=== PATIENT | female | born 1990 | race Caucasian/White ===

== ENCOUNTER 2018-08-21 16:52 | Emergency (ER) | payer BC ==
--- NOTE | 2018-08-21 16:22 | US ---
EXAMINATION TYPE: Transabdominal DATE OF EXAM: 12/26/17 COMPARISON: NONE CLINICAL HISTORY: O26.9 related conditions, [id number]. Hx of right ectopic with tubal removal. Cramping. No spotting. EXAM PERFORMED: Transvaginal (TV) and Transabdominal (TA) EXAM MEASUREMENTS: GESTATIONAL AGE / DATING Dates by LMP: (6 weeks/1 days) EDC: 04/15/2019 Dates by Current Scan for: No IUP seen at this time MATERNAL ANATOMY Uterus: 6.8 x 4.4 x 3.7 cm Right Ovary: 2.5 x 1.8 x 1.3 Left Ovary: 2.3 x 2.1 x 1.8 cm Post CDS / Adnexa: free fluid in CDS. In left adnexa there is a thin walled cystic appearing lesion seen adjacent to uterine MICHELLE and left ovary - 0.8 x 0.8 cm Presence of free fluid: no Presence of corpus luteal cyst: right ovarian lesion with peripheral vascular flow - 1.8 x 1.3 x 1.5 cm Presence of subchorionic bleed: no GESTATION / SURVEY MSD: No GS seen IUP: No IUP seen at this time Date of LMP: 07/09/2018, E1 Beta HcG (if available): Not available at this time No IUP seen at this time. Endometrium appears thickened. In left adnexa thin walled cystic appearing lesion seen adjacent to uterine MICHELLE and left ovary - 0.8 x 0.8 cm. Prominent cystic cervical lesion = 1.3 x 1.9 x 0.5 cm No changes suggest early intrauterine gestational sac or implantation identified. Differential diagno sis could include very early , ectopic , spontaneous . IMPRESSION: No intrauterine gestation identified at this time. Correlation with beta-hCG and follow-up is recomme nded.
[2018-08-21 18:31] VITALS: RESP 18; TEMP 98.3
[2018-08-21 19:17] LABS: Appearance,Urine Cloudy (Clear); Bilirubin,Urine Negative (Negative); Blood,Urine Negative (Negative); Color,Urine Light Yellow; Glucose,Urine (UA) Negative (Negative); Ketones,Urine Negative (Negative); Leukocyte Esterase,Urine Negative (Negative); Mucus,Urine Rare /hpf; Nitrite,Urine Negative (Negative); PH, Urine 5.5 (5.0-8.0); Protein,Urine Negative (Negative); RBC,Urine <1 /hpf (0-5); Specific Gravity,Urine 1.014 (1.001-1.035); Squamous Epithelial Cell,Urine 8 /hpf (0-4); Urobilinogen,Urine <2.0 mg/dL (<2.0); WBC,Urine 4 /hpf (0-5)
[2018-08-21 19:34] LABS: Basophils % (A) 0 %; Eosinophils # (A) 0.1 k/uL (0-0.7); Eosinophils % (A) 1 %; HCT 40.3 % (34.0-46.0); HGB 13.2 gm/dL (11.4-16.0); Lymphocytes # (A) 2.1 k/uL (1.0-4.8); Lymphocytes % (A) 22 %; MCH 29.5 pg (25.0-35.0); MCHC 32.7 g/dL (31.0-37.0); MCV 90.2 fL (80.0-100.0); Mean Platelet Volume 7.7; Monocytes # (A) 0.4 k/uL (0-1.0); Monocytes % (A) 4 %; Neutrophils # (A) 6.7 k/uL (1.3-7.7); Neutrophils % (A) 71 %; Platelet Count 328 k/uL (150-450); RBC 4.46 m/uL (3.80-5.40); RDW 12.5 % (11.5-15.5); WBC 9.4 k/uL (3.8-10.6)
[2018-08-21 19:40] LABS: ALT 23 U/L (9-52); AST 21 U/L (14-36); Albumin 4.7 g/dL (3.5-5.0); Alkaline Phosphatase 41 U/L (38-126); Amylase 38 U/L (30-110); Anion Gap 12 mmol/L; Blood Urea Nitrogen 17 mg/dL (7-17); Calcium 10.1 mg/dL (8.4-10.2); Carbon Dioxide 23 mmol/L (22-30); Chloride 106 mmol/L (98-107); Glucose 134 mg/dL (74-99); Lipase 41 U/L (23-300); Potassium 4.5 mmol/L (3.5-5.1); Sodium 141 mmol/L (137-145); Total Bilirubin 0.5 mg/dL (0.2-1.3); Total Protein 7.7 g/dL (6.3-8.2)
[2018-08-21 19:56] LABS: HCG,Quantitative Serum 615.7 mIU/mL
[2018-08-21 21:29] VITALS: BP 112/77; PULSE 82
--- NOTE | 2018-08-21 21:54 | ED ---
Abdominal Pain HPI - General Chief Complaint: Abdominal Pain Stated Complaint: issues, came from US Time Seen by Provider: 08/21/18 20:49 Source: patient Mode of arrival: ambulatory Limitations: no limitations - History of Present Illness Initial Comments: 27-year-old female patient presents to the emergency department today for evaluation after having an abnormal ultrasound outpatient today. Patient reports that she did have positive test at home and was having some lower abdominal cramping so she presented to her primary care physician today. Patient was diagnosed with a bacterial vaginal infection and also sent for ultrasound. Patient had finding of a thin walled cyst near the left adnexa. With patient's history of ectopic and positive test a or concerns was sent her over here for evaluation. Patient states that she has been having abdominal cramping for the last 2 days. States it is very mild. States that she has had an increase in vaginal discharge that she denies any vaginal bleeding. Patient denies any low back pain with this. Denies any hematuria, dysuria, urinary frequency, urinary urgency. Patient is . Patient denies any recent rash, fever, chills, shortness breath, chest pain, nausea, vomiting, diarrhea, constipation, numbness, tingling, dizziness, weakness, headache, visual changes, or any other complaints. - Related Data Home Medications Medication Instructions Recorded Confirmed No Known Home Medications 08/21/18 08/21/18 Allergies Allergy/AdvReac Type Severity Reaction Status Date / Time No Known Allergies Allergy Verified 08/21/18 19:26 Review of Systems ROS Statement: Those systems with pertinent positive or pertinent negative responses have been documented in the HPI. ROS Other: All systems not noted in ROS Statement are negative. Past Medical History Past Medical History: No Reported History History of Any Multi-Drug Resistant Organisms: None Reported Additional Past Surgical History / Comment(s): R fallopian tube removal 2010 Past Psychological History: No Psychological Hx Reported Smoking Status: Never smoker Past Alcohol Use History: Occasional Past Drug Use History: None Reported General Exam Limitations: no limitations General appearance: alert, in no apparent distress, other (This is a well- developed, well-nourished adult female patient in no acute distress. Vital signs upon presentation are temperature 98.3F, pulse 81, respirations 18, blood pressure 130/68, pulse ox 99% on room air.) Eye exam: Present: normal appearance, PERRL, EOMI. Absent: scleral icterus, conjunctival injection, periorbital swelling ENT exam: Present: normal exam, normal oropharynx, mucous membranes moist Respiratory exam: Present: normal lung sounds bilaterally. Absent: respiratory distress, wheezes, rales, rhonchi, stridor Cardiovascular Exam: Present: regular rate, normal rhythm, normal heart sounds. Absent: systolic murmur, diastolic murmur, rubs, gallop, clicks GI/Abdominal exam: Present: soft, normal bowel sounds. Absent: distended, tenderness, guarding, rebound, rigid Back exam: Present: normal inspection. Absent: CVA tenderness (R), CVA tenderness (L) Neurological exam: Present: alert, oriented X3, CN II-XII intact Psychiatric exam: Present: normal affect, normal mood Skin exam: Present: warm, dry, intact, normal color. Absent: rash Course Vital Signs 08/21/18 08/21/18 18:28 21:28 Temperature 98.3 F 98.3 F Pulse Rate 81 82 Respiratory 18 18 Rate Blood Pressure 130/68 112/77 O2 Sat by Pulse 99 100 Oximetry Medical Decision Making - Medical Decision Making 27-year-old female patient presented to the emergency department today for evaluation of lower abdominal cramping and abnormal ultrasound results. Ultrasound was reviewed and did reveal a thin walled cystic lesion to the left of the lower uterine segment near the left ovary measuring 0.8 x 0.8 cm. Patient's hCG is 615.7. Patient is not having any significant abdominal pain at this time. Findings concerning for early , ectopic , or spontaneous , with this hCg level it is too early to make a determination. I did discuss the case with Dr. regalado the [facility] nutrition teacher, she recommends repeat hCG level in 2 days and follow-up outpatient. Patient was educated regarding signs or symptoms of ectopic . She is urged to return immediately should her symptoms change or worsen at all. Return parameters discussed in detail. She verbalizes understanding and agrees with this plan - Lab Data Result diagrams: 08/21/18 19:15 08/21/18 19:15 Lab Results 08/21/18 08/21/18 08/21/18 Range/Units 19:00 19:00 19:15 WBC (3.8-10.6) k/uL RBC (3.80-5.40) m/uL Hgb (11.4-16.0) gm/dL Hct (34.0-46.0) % MCV (80.0-100.0) fL MCH (25.0-35.0) pg MCHC (31.0-37.0) g/dL RDW (11.5-15.5) % Plt Count (150-450) k/uL Neutrophils % % Lymphocytes % % Monocytes % % Eosinophils % % Basophils % % Neutrophils # (1.3-7.7) k/uL Lymphocytes # (1.0-4.8) k/uL Monocytes # (0-1.0) k/uL Eosinophils # (0-0.7) k/uL Basophils # (0-0.2) k/uL Sodium 141 (137-145) mmol/L Potassium 4.5 (3.5-5.1) mmol/L Chloride 106 (98-107) mmol/L Carbon Dioxide 23 (22-30) mmol/L Anion Gap 12 mmol/L BUN 17 (7-17) mg/dL Creatinine 0.73 (0.52-1.04) mg/dL Est GFR (CKD-EPI)AfAm >90 (>60 ml/min/1.73 sqM) Est GFR (CKD-EPI)NonAf >90 (>60 ml/min/1.73 sqM) Glucose 134 H (74-99) mg/dL Calcium 10.1 (8.4-10.2) mg/dL Total Bilirubin 0.5 (0.2-1.3) mg/dL AST 21 (14-36) U/L ALT 23 (9-52) U/L Alkaline Phosphatase 41 (38-126) U/L Total Protein 7.7 (6.3-8.2) g/dL Albumin 4.7 (3.5-5.0) g/dL Amylase 38 (30-110) U/L Lipase 41 (23-300) U/L HCG, Quant 615.7 mIU/mL Urine Color Light Yellow Urine Appearance Cloudy H (Clear) Urine pH 5.5 (5.0-8.0) Ur Specific [place] 1.014 (1.001-1.035) Urine Protein Negative (Negative) Urine Glucose (UA) Negative (Negative) Urine Ketones Negative (Negative) Urine Blood Negative (Negative) Urine Nitrite Negative (Negative) Urine Bilirubin Negative (Negative) Urine Urobilinogen <2.0 (<2.0) mg/dL Ur Leukocyte Esterase Negative (Negative) Urine RBC <1 (0-5) /hpf Urine WBC 4 (0-5) /hpf Ur Squamous Epith Cells 8 H (0-4) /hpf Urine Mucus Rare H (None) /hpf Urine HCG, Qual Detected (Not Detectd) 08/21/18 Range/Units 19:15 WBC 9.4 (3.8-10.6) k/uL RBC 4.46 (3.80-5.40) m/uL Hgb 13.2 (11.4-16.0) gm/dL Hct 40.3 (34.0-46.0) % MCV 90.2 (80.0-100.0) fL MCH 29.5 (25.0-35.0) pg MCHC 32.7 (31.0-37.0) g/dL RDW 12.5 (11.5-15.5) % Plt Count 328 (150-450) k/uL Neutrophils % 71 % Lymphocytes % 22 % Monocytes % 4 % Eosinophils % 1 % Basophils % 0 % Neutrophils # 6.7 (1.3-7.7) k/uL Lymphocytes # 2.1 (1.0-4.8) k/uL Monocytes # 0.4 (0-1.0) k/uL Eosinophils # 0.1 (0-0.7) k/uL Basophils # 0.0 (0-0.2) k/uL Sodium (137-145) mmol/L Potassium (3.5-5.1) mmol/L Chloride (98-107) mmol/L Carbon Dioxide (22-30) mmol/L Anion Gap mmol/L BUN (7-17) mg/dL Creatinine (0.52-1.04) mg/dL Est GFR (CKD-EPI)AfAm (>60 ml/min/1.73 sqM) Est GFR (CKD-EPI)NonAf (>60 ml/min/1.73 sqM) Glucose (74-99) mg/dL Calcium (8.4-10.2) mg/dL Total Bilirubin (0.2-1.3) mg/dL AST (14-36) U/L ALT (9-52) U/L Alkaline Phosphatase (38-126) U/L Total Protein (6.3-8.2) g/dL Albumin (3.5-5.0) g/dL Amylase (30-110) U/L Lipase (23-300) U/L HCG, Quant mIU/mL Urine Color Urine Appearance (Clear) Urine pH (5.0-8.0) Ur Specific [place] (1.001-1.035) Urine Protein (Negative) Urine Glucose (UA) (Negative) Urine Ketones (Negative) Urine Blood (Negative) Urine Nitrite (Negative) Urine Bilirubin (Negative) Urine Urobilinogen (<2.0) mg/dL Ur Leukocyte Esterase (Negative) Urine RBC (0-5) /hpf Urine WBC (0-5) /hpf Ur Squamous Epith Cells (0-4) /hpf Urine Mucus (None) /hpf Urine HCG, Qual (Not Detectd) - Radiology Data Radiology results: report reviewed Transvaginal ultrasound was obtained. Report was reviewed in its entirety. Impression by Dr. Rivera shows no injury uterine gestation identified at this time. The endometrium appears thickened. In the left adnexa there is a thin walled cystic appearing lesion seen adjacent to the lower uterine segment and left ovary measuring 0.8 x 0.8 cm. There is a prominent cystic cervical lesion measuring 1.3 x 1.9 x 0.5 cm. There are no changes to suggest early intrauterine gestational sac or implantation. Differential diagnosis could include very early , ectopic , or spontaneous . Disposition Clinical Impression: Abdominal pain during Disposition: HOME SELF-CARE Condition: Good Instructions: Ectopic (DC), Abdominal Pain in (ED) Additional Instructions: Increase fluids. Have quantitative hCG level redrawn in 2 days. Follow-up with [facility] for recheck as soon as possible. Return immediately for any new, worsening, or concerning symptoms. Is patient prescribed a controlled substance at d/c from ED?: No Referrals: Piotr Salazar Jr, DO [Primary Care Provider] - 1-2 days Dionne Tellez DO [Doctor of Osteopathic Medicine] - 1-2 days Time of Disposition: 21:55
== END 2018-08-21 22:00 | disposition home or self-care (01) ==
LOC: EC 16:52
DX: O99.89 Other specified diseases and conditions complicating pregnancy, childbirth and the puerperium (principal); R10.30 Lower abdominal pain, unspecified; N83.8 Other noninflammatory disorders of ovary, fallopian tube and broad ligament; R93.89 Abnormal findings on diagnostic imaging of other specified body structures; N89.8 Other specified noninflammatory disorders of vagina; Z90.79 Acquired absence of other genital organ(s); Z3A.00 Weeks of gestation of pregnancy not specified
CPT/HCPCS: 36415; 76801; 76817; 80053; 81001; 81025; 82150; 83690; 84702; 85025; 99284

== ENCOUNTER 2019-04-23 09:05 | Inpatient (IN) | payer BC ==
[2019-04-23] MEDS ORDERED: OXYTOCIN 10 UNIT/ML 1 ML VIAL IM PRN (10:57)
[2019-04-23] MEDS ORDERED: TERBUTALINE 1 MG/ML VIAL SQ PRN (10:57)
[2019-04-23] MEDS ORDERED: METHYLERGONOVINE 0.2 MG/ML 1 ML AMP IM PRN (10:57)
[2019-04-23] MEDS ORDERED: CARBOPROST TROMETHAMINE 250 MCG/ML 1 ML AMP IM PRN (10:57)
[2019-04-23] MEDS ORDERED: LIDOCAINE 0.5% (PF) 5 MG/ML (50 ML SDV) SQ PRN (10:57)
[2019-04-23] MEDS ORDERED: OXYTOCIN 30 UNITS/500 ML NS 30 UNIT in SALINE 1 500ML.BAG IV SCH (11:00)
[2019-04-23 11:21] VITALS: RESP 16; BMI 34.2
[2019-04-23] MEDS: LACTATED RINGERS 1,000 ML IV SCH ×2 (11:22→12:21)
[2019-04-23 11:32] LABS: Basophils % (A) 0 %; Eosinophils # (A) 0.1 k/uL (0-0.7); Eosinophils % (A) 1 %; HCT 38.1 % (34.0-46.0); HGB 12.2 gm/dL (11.4-16.0); Lymphocytes # (A) 1.2 k/uL (1.0-4.8); Lymphocytes % (A) 11 %; MCH 28.7 pg (25.0-35.0); MCHC 32.2 g/dL (31.0-37.0); MCV 89.4 fL (80.0-100.0); Mean Platelet Volume 7.8; Monocytes # (A) 0.5 k/uL (0-1.0); Monocytes % (A) 4 %; Neutrophils # (A) 8.7 k/uL (1.3-7.7); Neutrophils % (A) 82 %; Platelet Count 223 k/uL (150-450); RBC 4.26 m/uL (3.80-5.40); RDW 14.8 % (11.5-15.5); WBC 10.6 k/uL (3.8-10.6)
[2019-04-23] MEDS ORDERED: BUTORPHANOL 1 MG/ML 1 ML VIAL IV PRN (11:38)
--- NOTE | 2019-04-23 11:44 | P.HPOB ---
History of Present Illness H&P Date: 04/23/19 Chief Complaint: 39-3/7 weeks, labor The patient is a 28-year-old 2 para 0010 admitted at 39-3/7 weeks as established by seven-week ultrasound. She is admitted for labor as she has made documented cervical change in triage. Her has been uncomplicated and group B strep status is negative. On labor and delivery, all signs are reassuring. Obstetrical history: 2 para 0010 with 1 early miscarriage. Current statistics are listed in history of present illness. EDC of 04/27/2019 was established by a 7 week ultrasound. Laboratory workup done traits of blood type of O+ with a negative antibody screen. Rubella status is immune. The remainder of the laboratory workup was within normal limits. Early Glucola was within normal limits. One hour second trimester Glucola is normal and group B strep status is negative. Gynecologic history: Unremarkable with no history of any infections to include STDs. Review of Systems Review of systems is confined to history of present illness. Past Medical History Past Medical History: No Reported History History of Any Multi-Drug Resistant Organisms: None Reported Additional Past Surgical History / Comment(s): R fallopian tube removal 2010 Past Anesthesia/Blood Transfusion Reactions: No Reported Reaction Past Psychological History: No Psychological Hx Reported Smoking Status: Never smoker Past Alcohol Use History: None Reported Past Drug Use History: None Reported - Past Family History Mother Family Medical History: No Reported History Medications and Allergies Home Medications Medication Instructions Recorded Confirmed Type No Known Home Medications 08/21/18 04/23/19 History Allergies Allergy/AdvReac Type Severity Reaction Status Date / Time No Known Allergies Allergy Verified 04/23/19 09:21 Exam Vital Signs Temp Pulse Resp BP 04/23/19 11:10 96.8 F L 99 16 136/85 Intake and Output 04/22/19 04/23/19 04/23/19 22:59 06:59 14:59 Other: Weight 82.1 kg In general, this is a well-developed, well-nourished white female in no acute distress though she is uncomfortable in early labor. Her heart has a regular rhythm and rate without murmur. Her lungs are clear to auscultation bilaterally in all murphy. Her abdomen is gravid, nondistended, has normal active bowel sounds, is soft, nontender, and without any palpable masses aside from the uterine fundus. Her extremities are without any cyanosis, clubbing, or significant edema and are nontender to palpation bilaterally. Digital cervical examination on straights her to be 5 cm dilated, 80-90% effaced, the vertex in presentation at -2 station. Artificial rupture of membranes is carried out demonstrating clear fluid. Results Result Diagrams: 04/23/19 11:15 Abnormal Lab Results - Last 24 Hours (Table) 04/23/19 Range/Units 11:15 Neutrophils # 8.7 H (1.3-7.7) k/uL Assessment and Plan (1) Active labor at term Current Visit: Yes Status: Acute Code(s): [id number] - SNOMED Code(s): 42952515 Plan: The patient is admitted for close maternal and surveillance and expectant management will be practiced. She is a good candidate for either IV or epidural analgesia and has requested an epidural be placed. She will likely have Pitocin augmentation started following placement of the epidural as her contraction pattern remains somewhat erratic.
[2019-04-23] MEDS ORDERED: ROPIVACAINE 100 MG, fentaNYL (PF) 200 MCG in SODIUM CHLORIDE 0.9% 76 ML EPIDURAL ONE (12:23)
[2019-04-23] MEDS ORDERED: HYDROcodone/APAP 7.5-325MG 1 EACH TAB PO PRN (18:59)
[2019-04-23] MEDS ORDERED: ACETAMINOPHEN TAB 325 MG TAB PO PRN (18:59)
[2019-04-23] MEDS ORDERED: diphenhydrAMINE 25 MG CAP PO PRN (18:59)
[2019-04-23] MEDS ORDERED: SIMETHICONE 80 MG CHEWABLE PO PRN (18:59)
[2019-04-23] MEDS ORDERED: BENZOCAINE/MENTHOL SPRAY 1 GM/SPRAY AEROSOL TOPICAL PRN (18:59)
[2019-04-23] MEDS ORDERED: LANOLIN CREAM 5 GM TUBE TOPICAL PRN (18:59)
[2019-04-23] MEDS ORDERED: diphenhydrAMINE 50 MG/ML 1 ML VIAL IVP PRN ×2 (18:59)
[2019-04-23] MEDS ORDERED: HYDROCORTISONE 2.5% RECTAL CREAM 30 GM TUBE RECTAL PRN (18:59)
[2019-04-23] MEDS ORDERED: WITCH HAZEL 1 EACH MED..PAD TOPICAL PRN (18:59)
[2019-04-23] MEDS ORDERED: ZOLPIDEM 5 MG TAB PO PRN (18:59)
[2019-04-23] MEDS ORDERED: diphenhydrAMINE 50 MG CAP PO PRN (18:59)
[2019-04-23] MEDS ORDERED: HYDROcodone/APAP 5-325MG 1 EACH TAB PO PRN (18:59)
[2019-04-23] MEDS ORDERED: OXYTOCIN 20 UNITS/1000 ML NS 1,000 ML IV SCH (19:00)
--- NOTE | 2019-04-23 19:02 | P.PROBDLV ---
Vaginal Delivery Note - . Vaginal Delivery Note: The patient is a 28-year-old 2 para 0010 admitted at 39-3/7 weeks by good dating parameters. She is admitted in early active labor with all signs reassuring. She underwent artificial rupture of membranes demonstrating clear fluid. She had an epidural catheter placed for analgesia at the onset of the active phase of labor. She did require Pitocin augmentation and then progressed fairly quickly to complete and 0 station. She pushed over the course of appr oximately 50 minutes to a normal spontaneous vaginal delivery of a viable 6 lbs. 11 oz. baby girl with Apgars of 9 at 1 minute and 10 at 5 minutes delivered in the right occiput anterior position. The placenta was delivered spontaneously, intact, and grossly normal with a grossly normal three-vessel cord inserted approximately 3-4 cm from the margin of the placental disc. There was a small second-degree midline perineal laceration which was repaired in standard fashion using 3-0 chromic catgut without difficulty. Estimated blood loss for the case was approximately 300 mL. There were no Medications. All sponge, instrument, and needle counts were correct. Both mother and are resting comfortably in recovery.
[2019-04-23] MEDS: IBUPROFEN 600 MG TAB PO PRN (19:56)
[2019-04-23] MEDS: SENNOSIDES-DOCUSATE SODIUM 1 EACH TAB PO SCH (19:56)
[2019-04-24 08:35] VITALS: PULSE 84
[2019-04-24] MEDS: IBUPROFEN 600 MG TAB PO PRN (08:36)
[2019-04-24] MEDS: SENNOSIDES-DOCUSATE SODIUM 1 EACH TAB PO SCH (08:36)
--- NOTE | 2019-04-24 08:46 | P.DS ---
Providers Date of admission: 04/23/19 10:57 Expected date of discharge: 04/24/19 Attending physician: Ryder Cervantes Primary care physician: Stated None - Discharge Diagnosis(es) (1) Active labor at term Current Visit: Yes Status: Acute (2) Normal spontaneous vaginal delivery Current Visit: Yes Status: Acute Hospital Course: The patient is a 28 year 2 para 0010 admitted at 39-3/7 weeks by good dating parameters perches admitted in labor with all signs reassuring. Her was uncomplicated and group B strep status is negative. On labor and delivery, she had artificial rupture of membranes demonstrating clear fluid. She had an epidural catheter placed for analgesia and then Pitocin augmentation started. She made progress fairly quickly to complete and then pushed to a normal spontaneous vaginal delivery of a viable 6 lbs. 11 oz. baby girl with Apgars of 9 at 1 minute and 10 at 5 minutes. Her course was unremarkable vital signs remaining stable and her temperature was afebrile throughout. She was deemed stable for discharge on day 1 was discharged home to follow-up in the office in 6 weeks' time routinely. Discharge instructions included calling for any significantly increased bleeding or foul-smelling lochia, significantly increased fever abdominal pain, perineal complaints, breast complaints, or anything else that concerned her. She is additionally instructed to have nothing in the vagina for at least 6 weeks time to include intercourse. She understood her instructions and agrees to follow up as noted above. Discharge medications included continue vitamins as she has opted to breast-feed. She otherwise was to use [id number] analgesic pain medications as needed. Maternal blood type is O+ and rubella status is immune. Procedures: #1. Artificial rupture of membranes #2. Epidural analgesia #3. Pitocin augmentation #4. Normal spontaneous vaginal delivery #5. Repair of perineal laceration Patient Condition at Discharge: Good Plan - Discharge Summary New Discharge Prescriptions: No Action No Known Home Medications Discharge Medication List No Known Home Medications 08/21/18 [History] Follow up Appointment(s)/Referral(s): Ryder Cervantes MD [STAFF PHYSICIAN] - 6 Weeks Discharge Disposition: HOME SELF-CARE
[2019-04-24 15:51] VITALS: BP 121/62; TEMP 97.9
--- NOTE | 2019-04-27 11:18 | P.MSEPDOC ---
Presenting Problems - Arrival Data Date of Arrival on Unit: 04/23/19 Time of Arrival on Unit: 10:57 Mode of Transport: Ambulatory - Complaint OB-Reason for Admission/Chief Complaint: Possible Onset of Labor Medical History - Information : 2 Para: 0 Term: 0 : 0 Abortions: Spontaneous or Elective: 1 Number of Living Children: 0 - Gestational Age Gestational Age by BILLY (wks/days): 39 Weeks and 5 Days Review of Systems - Review of Systems Constitutional: No problems Breast: No problems ENT: No problems Cardiovascular: No problems Respiratory: No problems Gastrointestinal: No problems Genitourinary: No problems Musculoskeletal: No problems Neurological: No problems Skin: No problems Vital Signs - Temperature Temperature: 97.9 F Temperature Source: Oral - Pulse Right Sitting Pulse Rate: 84 Pulse Assessment Method: Automatic Cuff - Respirations Respiratory Rate: 16 Oxygen Delivery Method: Room Air - Blood Pressure Right Arm Blood Pressure: 121/62 Blood Pressure Mean: 81 Blood Pressure Source: Automatic Cuff Medical Screen Scoring (Pre) - Cervical Exam Dilation: 4-7 cm = 2 Effacement: More than 50% = 2 Membranes: Intact - Uterine Contractions Frequency: > or = 36 weeks =2 Duration: > 40 seconds = 2 Intensity: Contraction palpated strong = 1 - Maternal Vital Signs Maternal Temperature: N/A Maternal Blood Pressure: N/A Signs of Preeclampsia: N/A Maternal Respirations: N/A - Maternal Trauma Maternal Trauma: N/A - Assessment - Baby A Baseline FHR: 140 Heart Rate - NICHD Category: Category I (Normal) = 0 NST: Reactive Position: N/A Station: N/A - Total Score - Baby A Total Score - Baby A: 9 - Total Score - Baby B Total Score - Baby B: 9 - Total Score - Baby C Total Score - Baby C: 9 - Level of Risk - Baby A Level of Risk - Baby A: Medium (6-9) - Level of Risk - Baby B Level of Risk - Baby B: Medium (6-9) - Level of Risk - Baby C Level of Risk - Baby C: Medium (6-9) Physician Notification (Pre) - Physician Notified Physician Notified Date: 04/23/19 Physician Notified Time: 10:57 Physician/Practitioner Notifed:: Billy Khalil Order Received: Yes (admit for labor) Disposition - Disposition Discharge Date: 04/24/19 Discharge Time: 19:00 I agree with the RN Medical Screening Exam: Yes Risk & Benefit of care provided described in d/c instruction: Yes Diagnosis: ENCOUNTER FOR FULL-TERM UNCOMPLICATED DELIVERY
== END 2019-04-24 19:00 | disposition home or self-care (01) | DRG 807 ==
LOC: FBPOP 09:05 → 4FBP 10:57
PROVIDERS: ADMIT Obstetrics & Gynecology; ATTEND Obstetrics & Gynecology
PROC: 3E0R3BZ Introduction of Anesthetic Agent into Spinal Canal, Percutaneous Approach (ICD-10-PCS; principal; 2019-04-23)
PROC: 10907ZC Drainage of Amniotic Fluid, Therapeutic from Products of Conception, Via Natural or Artificial Opening (ICD-10-PCS; principal; 2019-04-23)
PROC: 0KQM0ZZ Repair Perineum Muscle, Open Approach (ICD-10-PCS; principal; 2019-04-23)
PROC: 10E0XZZ Delivery of Products of Conception, External Approach (ICD-10-PCS; principal; 2019-04-23)
PROC: 00HU33Z Insertion of Infusion Device into Spinal Canal, Percutaneous Approach (ICD-10-PCS; principal; 2019-04-23)
DX: O70.1 Second degree perineal laceration during delivery (principal); Z37.0 Single live birth; Z3A.39 39 weeks gestation of pregnancy; Z90.79 Acquired absence of other genital organ(s)
CPT/HCPCS: 59025; 85025; 86850; 86900; 86901; 99213

== ENCOUNTER 2021-01-31 03:29 | Emergency (ER) | payer BC ==
[2021-01-31] MEDS ORDERED: IBUPROFEN 600 MG TAB PO STA (04:10)
[2021-01-31] MEDS ORDERED: DEXAMETHASONE SOD PHOSPHATE 10 MG/ML 1 ML VIAL IV STA (04:10)
[2021-01-31] MEDS ORDERED: AMOXIC-POT CLAV 875-125MG 1 EACH TAB PO STA (04:10)
[2021-01-31] MEDS ORDERED: AMOXIC-POT CLAV 875MG STARTER PACK 2 TAB BTL PO STA (04:10)
--- NOTE | 2021-01-31 04:11 | ED ---
ENT HPI - General Chief complaint: ENT Stated complaint: Facial Swelling Time Seen by Provider: 01/31/21 03:45 Source: patient, RN notes reviewed, old records reviewed Mode of arrival: ambulatory Limitations: no limitations - History of Present Illness Initial comments: This is a 22-year-old female DF for evaluation. Patient Dese for evaluation of facial swelling left-sided jaw swelling with difficulty opening her mouth. Patient notices symptoms and they've been persistent throughout the morning. They continue tonight nursing notices nothing she presents to Emergency makes it better no fevers. No ear pain, no headaches. MD complaint: difficulty swallowing, other (Left-sided neck pain jaw pain) -: days(s) (1) Location: L ear Severity: mild Severity scale (1-10): 3 Quality: aching Consistency: constant Improves with: none Worsens with: none Context- Ear: other Associated Symptoms: pain with swallowing - Related Data Previous Rx's Medication Instructions Recorded Amoxic-Pot Clav 875-125Mg 1 tab PO Q12HR #20 tablet 01/31/21 [Augmentin 875-125] Allergies Allergy/AdvReac Type Severity Reaction Status Date / Time No Known Allergies Allergy Verified 01/31/21 03:38 Review of Systems ROS Statement: Those systems with pertinent positive or pertinent negative responses have been documented in the HPI. ROS Other: All systems not noted in ROS Statement are negative. Past Medical History Past Medical History: No Reported History History of Any Multi-Drug Resistant Organisms: None Reported Additional Past Surgical History / Comment(s): R fallopian tube removal 2010 Past Anesthesia/Blood Transfusion Reactions: No Reported Reaction Past Psychological History: Anxiety, Depression Smoking Status: Never smoker Past Alcohol Use History: Occasional Past Drug Use History: None Reported - Past Family History Mother Family Medical History: No Reported History General Exam - General Exam Comments Initial Comments: Patient does appear to have swelling of her salivary gland Limitations: no limitations General appearance: alert, in no apparent distress Head exam: Present: atraumatic, normocephalic, normal inspection Eye exam: Present: normal appearance, PERRL, EOMI. Absent: scleral icterus, conjunctival injection, periorbital swelling ENT exam: Present: normal exam, mucous membranes moist Neck exam: Present: normal inspection. Absent: tenderness, meningismus, lymphadenopathy Respiratory exam: Present: normal lung sounds bilaterally. Absent: respiratory distress, wheezes, rales, rhonchi, stridor Cardiovascular Exam: Present: regular rate, normal rhythm, normal heart sounds. Absent: systolic murmur, diastolic murmur, rubs, gallop, clicks GI/Abdominal exam: Present: soft, normal bowel sounds. Absent: distended, tenderness, guarding, rebound, rigid Extremities exam: Present: normal inspection, full ROM, normal capillary refill. Absent: tenderness, pedal edema, joint swelling, calf tenderness Back exam: Present: normal inspection Neurological exam: Present: alert, oriented X3, CN II-XII intact Psychiatric exam: Present: normal affect, normal mood Skin exam: Present: warm, dry, intact, normal color. Absent: rash Course Vital Signs 01/31/21 01/31/21 03:32 05:23 Temperature 98.3 F 98.1 F Pulse Rate 83 69 Respiratory 20 16 Rate Blood Pressure 119/81 115/80 O2 Sat by Pulse 98 100 Oximetry - Reevaluation(s) Reevaluation #1: 01/31/21 05:40 Medical record is reviewed Reevaluation #2: 01/31/21 05:40 Patient does feel better here in the ER Spoke with patient regarding findings and questions are answered Medical Decision Making - Medical Decision Making 22 female presents today for left-sided jaw or neck pain and swelling. She has have sialoadenitis and will be encouraged to take antibiotics but mainly increased hard candy, lozenges - Radiology Data Radiology results: report reviewed (CT soft tissue neck positive sialoadenitis), image reviewed Disposition Clinical Impression: Sialoadenitis Disposition: HOME SELF-CARE Condition: Good Instructions (If sedation given, give patient instructions): Sialoadenitis (ED) Prescriptions: Amoxic-Pot Clav 875-125Mg [Augmentin 875-125] 1 tab PO Q12HR #20 tablet Is patient prescribed a controlled substance at d/c from ED?: No Referrals: Piotr Salazar Jr, [Primary Care Provider] - 1-2 days
[2021-01-31] MEDS ORDERED: DEXAMETHASONE SOD PHOSPHATE 10 MG/ML 1 ML VIAL IM STA (04:49)
--- NOTE | 2021-01-31 05:08 | CT ---
EXAM: CT Neck Without Intravenous Contrast CLINICAL HISTORY: ITS.REASON CT Reason: sialoadenitis TECHNIQUE: Axial computed tomography images of the neck without intravenous contrast. CTDI is 7.7 mGy and DLP is 236.3 mGy-cm. This CT exam was performed using one or more of the following dose reduction techniques: automated exposure control, adjustment of the mA and/or kV according to patient size, and/or use of iterative reconstruction technique. COMPARISON: No relevant prior studies available. FINDINGS: Oropharynx: No significant tonsillar enlargement. Hypopharynx: Unremarkable. Larynx: Normal epiglottis. Trachea: Unremarkable. Retropharyngeal space: Unremarkable. Submandibular/parotid glands: Glands are normal in size. Thyroid: No nodules. Bones/joints: No acute fracture. Soft tissues: Mild swelling around the left submandibular gland. Vasculature: Unremarkable. Lymph nodes: No lymphadenopathy. Sinuses: Unremarkable. No acute sinusitis. Mastoid air cells: Unremarkable. No mastoid effusion. Lung apices: Unremarkable. IMPRESSION: Mild swelling around the left submandibular gland. Correlate with sialoadenitis or infectious process. No stone is identified.
[2021-01-31 05:31] VITALS: BP 115/80; PULSE 69; RESP 16; TEMP 98.1
== END 2021-01-31 05:25 | disposition home or self-care (01) ==
LOC: EC 03:29
DX: K11.20 Sialoadenitis, unspecified (principal); M54.2 Cervicalgia; F41.9 Anxiety disorder, unspecified; F32.9 Major depressive disorder, single episode, unspecified
CPT/HCPCS: 70490; 99284; 96372; J1100